=== PATIENT | male | born 1985 | race Caucasian/White ===

== ENCOUNTER 2018-10-28 21:42 | Inpatient (IN) | payer MEDICARE, OTHER | END 2018-10-31 14:57 | disposition home or self-care (01) | LOC: ER 21:42 → ED HOLD 10-29 04:37 → SUR 3N 10-29 07:05 → PAS IN 10-29 17:13 → SUR 3N 10-29 19:11 | PROC: 0DTJ4ZZ Resection of Appendix, Percutaneous Endoscopic Approach (ICD-10-PCS; principal; 2018-10-29 15:37) | DX: B17.9 Acute viral hepatitis, unspecified (principal); K35.891 Other acute appendicitis without perforation, with gangrene ==